=== PATIENT | female | born 1985 | race African-American/Black ===

== ENCOUNTER 2018-10-04 21:52 | Emergency (ER) | payer MEDICAID ==
[~2018-10-04] VITALS: Ht 167.6 cm; Wt 63.5 kg
[~2018-10-04 21:52] MED LIST: PHEN100C70
[2018-10-05] MEDS ORDERED: SODIUM CHLORIDE 0.9% 500 ML IV ONE (00:55)
[2018-10-05] MEDS ORDERED: ACETAMINOPHEN 500 MG TAB PO ONE (01:00)
[2018-10-05 01:42] LABS: BUN/Creatinine Ratio 13.3; Calcium 8.5 mg/dL (8.5-10.1); Potassium 3.7 mmol/L (3.5-5.1)
[2018-10-05 04:00] VITALS: BP 97/72
== END 2018-10-05 05:23 | disposition home or self-care (01) ==
LOC: ER 21:53
DX: R56.9 Unspecified convulsions (principal); F17.210 Nicotine dependence, cigarettes, uncomplicated
CPT/HCPCS: 36415; 70450; 80048; 84702; 94761